=== PATIENT | male | born 1935 | race Caucasian/White ===

== ENCOUNTER 2020-08-17 12:50 | Outpatient (RCR) | payer MEDICARE | END 2020-08-18 | LOC: PT 12:50 | PROVIDERS: ATTEND Specialist | DX: M70.61 Trochanteric bursitis, right hip (principal); M25.551 Pain in right hip; M62.81 Muscle weakness (generalized); R26.2 Difficulty in walking, not elsewhere classified ==

== ENCOUNTER → 2020-09-10 | Outpatient (CLI) | payer MEDICARE ==
--- NOTE | 2020-09-10 19:33 | Diagnostic Imaging Report ---
Exam: Head CT without contrast History: Dizziness, giddiness Comparison studies: None Technique: Axial images were obtained from the skull base to the vertex. Coronal and sagittal images reconstructed from the axial data. Dose modulation, iterative reconstruction, and/or weight based adjustment of the mA/kV was utilized to reduce the radiation dose to as low as reasonably achievable. Radiation dose: Total DLP: 921.4 mGy*cm. Estimated effective dose: DLP x 0.015 Intravenous contrast: None Findings: Scalp: No abnormalities. Bones: No fractures, blastic or lytic lesions. Brain sulci: Mildly prominent. Ventricles: Normal in size and configuration. No hydrocephalus. Extra-axial spaces: No masses, no fluid collection. Parenchyma: No mass, acute hemorrhage or acute or chronic cortical insults. Ill-defined hypodensities in the supratentorial white matter are nonspecific but are most compatible with chronic microvascular ischemic changes. Sellar/suprasellar region: The pituitary gland is mildly prominent as seen on the sagittal reformat. . Craniocervical junction: Patent foramen magnum. No Chiari one malformation. Incidental findings: Atherosclerotic calcifications in the carotid siphons. IMPRESSION: No acute intracranial abnormalities. Chronic findings: 1. Mild generalized parenchymal volume loss. 2. Mild microvascular ischemic changes. 3. 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 Dedicated sella MRI without/with IV contrast may further evaluate as warranted. Signed by: Dr. Remi Goodman M.D. on 09/10/2020 7:30 PM
== END ==
LOC: CT 17:33
PROVIDERS: ATTEND Family Medicine
DX: R42 Dizziness and giddiness (principal)
CPT/HCPCS: 70450

== ENCOUNTER 2020-09-11 12:51 | Outpatient (RCR) | payer MEDICARE | END 2020-09-17 | LOC: PT 12:51 | PROVIDERS: ATTEND Specialist | DX: M70.61 Trochanteric bursitis, right hip (principal); M62.81 Muscle weakness (generalized); R26.2 Difficulty in walking, not elsewhere classified; M25.551 Pain in right hip | CPT/HCPCS: 97139 ==

== ENCOUNTER 2020-09-25 12:52 | Outpatient (RCR) | payer MEDICARE | END 2020-10-18 | LOC: PT 12:52 | PROVIDERS: ATTEND Specialist | DX: M70.61 Trochanteric bursitis, right hip (principal) ==

== ENCOUNTER → 2021-03-06 | Day surgery (SDC) | payer MEDICARE ==
[~2021-03-06] MED LIST: AMIODARONE HCL200 MG PO; ASPIRIN81 MG PO; ATENOLOL50 MG PO; CO Q-1010 MG PO; CRESTOR10 MG PO; FENTANYL CITRATE/PF 100MCG/2 ML INJ ONE; LIDOCAINE HCL 2% LOCAL INJ 5 ML SDV VIAL INJ ONE; LISINOPRIL10 MG PO; MAGOX 400400 MG PO; MELATONIN3 MG PO; PROBIOTIC PO; PROPOFOL IV EMULSION 10 MG/ML 20 ML VIAL ONE; TRIAMTERENE-HC1 EAC2 PO; VITAMIN D3 PO
[2021-03-06 09:24] LABS: BASOPHILS % 0.4 % (0.0-1.0); EOSINOPHILS # (AUTO) 0.1 (0.0-0.4); EOSINOPHILS % 1.2 % (0.0-6.0); HEMATOCRIT 44.3 % (38.2-49.6); HEMOGLOBIN 15.1 g/dL (14.0-18.0); LYMPHOCYTES # (AUTO) 1.5 (1.0-3.2); LYMPHOCYTES % 15.8 % (18.0-39.1); MEAN CORPUSCULAR HEMOGLOBIN 32.1 pg (28-32); MEAN CORPUSCULAR HGB CONC 34.1 g/dL (31-35); MEAN CORPUSCULAR VOLUME 94.3 fL (81-99); MONOCYTES # (AUTO) 0.8 (0.2-0.8); MONOCYTES % 8.7 % (4.4-11.3); NEUTROPHILS # (AUTO) 6.8 (2.1-6.9); NEUTROPHILS % 73.5 % (38.7-80.0); PLATELET COUNT 233 x10e3/uL (140-360); RED CELL DISTRIBUTION WIDTH 14.7 % (11.7-14.4)
[2021-03-06 11:37] VITALS: BP 142/67
== END | disposition home or self-care (01) ==
LOC: OR 08:47
PROVIDERS: ATTEND Internal Medicine Gastroenterology
DX: Z12.11 Encounter for screening for malignant neoplasm of colon (principal); Z86.010 Personal history of colon polyps; K29.50 Unspecified chronic gastritis without bleeding; B96.81 Helicobacter pylori [H. pylori] as the cause of diseases classified elsewhere; K31.89 Other diseases of stomach and duodenum; K21.9 Gastro-esophageal reflux disease without esophagitis; K58.9 Irritable bowel syndrome, unspecified; K20.90 Esophagitis, unspecified without bleeding; K56.699 Other intestinal obstruction unspecified as to partial versus complete obstruction; K57.30 Diverticulosis of large intestine without perforation or abscess without bleeding; K64.8 Other hemorrhoids; I13.0 Hypertensive heart and chronic kidney disease with heart failure and stage 1 through stage 4 chronic kidney disease, or unspecified chronic kidney disease; N18.1 Chronic kidney disease, stage 1; I50.9 Heart failure, unspecified; E78.5 Hyperlipidemia, unspecified; I42.9 Cardiomyopathy, unspecified; M54.9 Dorsalgia, unspecified; N20.0 Calculus of kidney; M19.90 Unspecified osteoarthritis, unspecified site; F32.9 Major depressive disorder, single episode, unspecified; Z88.8 Allergy status to other drugs, medicaments and biological substances; Z01.812 Encounter for preprocedural laboratory examination; Z20.822 Contact with and (suspected) exposure to COVID-19; Z79.82 Long term (current) use of aspirin; Z68.30 Body mass index [BMI] 30.0-30.9, adult; Z95.0 Presence of cardiac pacemaker; Z80.0 Family history of malignant neoplasm of digestive organs
CPT/HCPCS: 43239; G0105; 36415; 45378; 85025; J2001; J3010; U0002

== ENCOUNTER → 2022-11-10 | Outpatient (CLI) | payer MEDICARE ==
[~2022-11-10] MED LIST changes: -FENTANYL CITRATE/PF 100MCG/2 ML INJ ONE; -LIDOCAINE HCL 2% LOCAL INJ 5 ML SDV VIAL INJ ONE; -PROPOFOL IV EMULSION 10 MG/ML 20 ML VIAL ONE
[2022-11-10 15:28] LABS: CREATININE, SERUM 1.34 mg/dL (0.72-1.25)
== END ==
LOC: CT 14:43
PROVIDERS: ATTEND Family Medicine
DX: J20.9 Acute bronchitis, unspecified (principal)
CPT/HCPCS: 36415; 71250; 82565; 84520

== ENCOUNTER 2022-11-23 04:41 | Emergency (ER) | payer MEDICARE, OTHER ==
[~2022-11-23] VITALS: Ht 177.8 cm; Wt 97.5 kg
[2022-11-23] MEDS ORDERED: BACITRACIN ZINC 0.9GM TP ONE ×2 (04:45→04:58)
[2022-11-23] MEDS ORDERED: AMOX TR-K CLV1 EAC2 PO (04:56)
[2022-11-23 04:59] VITALS: BP 155/57
== END 2022-11-23 05:04 | disposition home or self-care (01) ==
LOC: ER 04:50
DX: S50.812A Abrasion of left forearm, initial encounter (principal); W55.03XA Scratched by cat, initial encounter; Y92.89 Other specified places as the place of occurrence of the external cause; I10 Essential (primary) hypertension; I50.9 Heart failure, unspecified; E78.5 Hyperlipidemia, unspecified; Z95.810 Presence of automatic (implantable) cardiac defibrillator
CPT/HCPCS: 99282